=== PATIENT | male | born 1940 | race Caucasian/White ===

== ENCOUNTER 2016-08-25 21:16 | Emergency (ER) | payer MEDICARE ==
[~2016-08-25] VITALS: Ht 177.8 cm; Wt 90.7 kg
--- NOTE | 2016-08-25 21:36 | ED.ADGEN ---
Adult General Chief Complaint Chief Complaint: LOWEREXTREMITY INJURY [facility] HPI Patient is a 75 year old male presents with persistent left lower anterior leg pain tenderness and swelling after being struck in the left leg via softball one week ago. Patient is not currently on a blood thinner. Patient reports pain with palpation and ambulation, which is gradually worsened over the past week. Patient has not sought medical care orders like until today. He is not currently on anticoagulation therapy. On exam, patient has and approx 10 x 12 cm and area of left lower extremity, medial anterior tenderness swelling with bruising or palpable hematoma. There is no erythema. There is no pass anterior calf pain tenderness. Patient has 2+ distal pulses, with good cap refill and without neurologic deficit. Patient does not have increased pain on passive range of motion. No other acute symptoms or complaints. Review of Systems Review of Systems ROS as per [facility] Allergies Allergies Allergies Coded Allergies Type Severity Reaction Last Updated Verified No Known Drug Allergies 08/25/16 No Physical Exam Physical Exam Constitutional: Well developed, well nourished, no acute distress, non-toxic appearance. Extremities: No tenderness, Left lower extremity, approx 10 x 12 cm and area of the medial anterior tenderness swelling with bruising or palpable hematoma. There is no erythema. There is no pass anterior calf pain tenderness. Patient has 2+ distal pulses, with good cap refill and without neurologic deficit Neurologic: Alert and oriented X 3, normal motor function, normal sensory function, no focal deficits noted. Psychologic: Affect normal, judgement normal, mood normal. Current Patient Data Vital Signs Vital Signs Date Time Temp Pulse Resp B/P (MAP) Pulse Ox O2 Delivery O2 Flow Rate FiO2 08/25/16 21:22 97.8 91 16 143/80 (101) 95 Room Air 97.8 EKG EKG [] Radiology/Procedures Radiology/Procedures [] Course & Med Decision Making Course & Med Decision Making Pertinent Labs and Imaging studies reviewed. (See chart for details) [] Dragon Disclaimer Dragon Disclaimer This electronic medical record was generated, in whole or in part, using a voice recognition dictation system. VINCENZO OCONNOR DO Aug 25, 2016 21:36
--- NOTE | 2016-08-25 22:38 | RAD ---
Left Lower Extremity Venous Doppler Ultrasound Indication: Hit by softball in left medial calf one week ago, pain, swelling, bruising. Comparison: None. Procedure: Color Doppler, spectral Doppler, and grayscale images with and without compression are obtained in the area of the common femoral vein, superficial femoral vein - femoral vein junction, main femoral vein (superficial femoral vein) and popliteal vein. Veins of the proximal calf are also imaged. Findings: There is normal duplex flow, color flow and compressibility of all visualized vein segments. There is no evidence of deep venous thrombosis. Grayscale imaging demonstrates large subcutaneous hematoma involving the left lower leg in area of interest. Hematoma measures 7.1 x 5.2 x 1.9 cm. Impression: 1. No evidence of left lower extremity deep venous thrombosis. 2. Large left lower leg subcutaneous hematoma Electronically signed by: Gabriel Spears MD (08/25/2016 10:35 PM)
[2016-08-25 22:45] VITALS: BP 122/68
--- NOTE | 2016-08-26 09:01 | RAD ---
Left tibia and fibula, 2 views, 08/25/2016: History: Mid shaft pain and swelling No fracture is identified. There is considerable degenerative change at the knee joint with chondrocalcinosis. There is moderate diffuse subcutaneous edema about the lower leg. IMPRESSION: No acute bony abnormality is detected.
== END 2016-08-25 23:03 | disposition home or self-care (01) ==
LOC: ER 21:16
DX: M79.662 Pain in left lower leg (principal); R22.42 Localized swelling, mass and lump, left lower limb
CPT/HCPCS: 73590; 93971; 99284-25

== ENCOUNTER 2019-04-02 18:35 | Inpatient (IN) | payer MEDICARE ==
[~2019-04-02] VITALS: Ht 177.8 cm; Wt 91.6 kg
--- NOTE | 2019-04-02 18:58 | PHYS DOC ---
Past Medical History Past Medical History: Hypertension, Other Additional Past Medical Histor: Hx of Cirrhosis w/liver transplant Past Surgical History: Other Additional Past Surgical Histo: Liver transplant, left knee Smoking Status: Never Smoker Alcohol Use: Rarely Drug Use: None Adult General Chief Complaint Chief Complaint: KNEE INJURY [facility] HPI 78-year-old male with underlying history of hypertension, liver transplant presents to the emergency department with complaint of right knee pain. Patient states he was walking across the yard subsequent stepped in a pothole with his left foot, this process he twisted his right knee was unable to bear weight on his right knee. He describes pain with range of motion. Patient denies any chest pain, shortness breath, nausea, vomiting, abdominal pain. Review of Systems Review of Systems Constitutional: Denies fever or chills [] Respiratory: Denies cough or shortness of breath [] Cardiovascular: No additional information not addressed in HPI [] GI: Denies abdominal pain, nausea, vomiting, bloody stools or diarrhea [] : Denies dysuria or hematuria [] Musculoskeletal: right knee pain Integument: Denies rash or skin lesions [] Neurologic: Denies headache, focal weakness or sensory changes [] All other systems were reviewed and found to be within normal limits, except as documented in this note. Allergies Allergies Allergies Coded Allergies Type Severity Reaction Last Updated Verified No Known Drug Allergies 08/25/16 No Physical Exam Physical Exam Constitutional: Well developed, well nourished, no acute distress, non-toxic appearance. [] HENT: Normocephalic, atraumatic, bilateral external ears normal, oropharynx moist, no oral exudates, nose normal. [] Eyes: PERRLA, EOMI, conjunctiva normal, no discharge. [] Cardiovascular:Heart rate regular rhythm, no murmur [] Lungs & Thorax: Bilateral breath sounds clear to auscultation [] Abdomen: Bowel sounds normal, soft, no tenderness, no masses, no pulsatile masses. [] Skin: Warm, dry, no erythema, no rash. [] Back: No tenderness, no CVA tenderness. [] Extremities: TTP right knee, obvious effusion appreciated on exam, pain with ROM, negative anterior drawer test, no laxity appreciated to medial/lateral collateral ligament on exam Neurologic: Alert and oriented X 3, no focal deficits noted. [] Psychologic: Affect normal, judgement normal, mood normal. [] Current Patient Data Vital Signs Vital Signs Date Time Temp Pulse Resp B/P (MAP) Pulse Ox O2 Delivery O2 Flow Rate FiO2 04/02/19 18:38 98.7 90 16 170/81 (110) 97 Room Air 98.7 EKG EKG [] Radiology/Procedures Radiology/Procedures [facility] [address] [place] [address] IMAGING REPORT Signed PATIENT: ANDREW GARVEY EACCOUNT: [id number] : 1940 LOCATION: ER AGE: 78 SEX: M EXAM STATUS: REG ER ORD. PHYSICIAN: DAVID KATE MD REASON: fall, twisted knee - unable to bear weight, obvious traumatic effusion PROCEDURE: KNEE RIGHT 3V EXAM: AP, oblique and lateral views right knee DATE: 04/02/2019 6:54 PM INDICATION: Fall,Knee pain COMPARISON: No Prior FINDINGS/ IMPRESSION: 1. There is a mildly depressed lateral tibial plateau fracture with equivocal extension to the lateral tibial metaphysis. Fracture can be further delineated by CT. 2. Lipohemarthrosis. 3. Right knee joint osteoarthritis with moderate medial compartment joint space narrowing and tricompartmental osteophytes. Electronically signed by: Derek Baker MD (04/02/2019 7:44 PM) [id number] DICTATED and SIGNED BY: DEREK BAKER MD DATE: 04/02/19 194 [] Course & Med Decision Making Course & Med Decision Making Pertinent Labs and Imaging studies reviewed. (See chart for details) []78-year-old male with underlying history of hypertension, liver transplant presents to the emergency department with complaint of right knee pain. Patient states he was walking across the yard subsequent stepped in a pothole with his left foot, this process he twisted his right knee was unable to bear weight on his right knee. He describes pain with range of motion. Patient denies any chest pain, shortness breath, nausea, vomiting, abdominal pain. Xray with evidence of tibial plateau fracture Ortho called 2002 - discussed with Dr. Marx will see patient, recommends hinged knee brace Given patient lives alone no family to watch and pain control will admit with PT/OT consult Aden Disclaimer Aden Disclaimer This electronic medical record was generated, in whole or in part, using a voice recognition dictation system. Departure Departure Impression: Primary Impression: Tibial plateau fracture, right Disposition: 09 ADMITTED INPATIENT Admitting Physician: ANNIA Condition: STABLE Referrals: NO PCP (PCP) Problem Qualifiers Primary Impression: Tibial plateau fracture, right Encounter type: initial encounter Fracture type: closed Qualified Codes: S82.141A - Displaced bicondylar fracture of right tibia, initial encounter for closed fracture DAVID KATE MD Apr 02, 2019 18:58
--- NOTE | 2019-04-02 19:47 | RAD ---
EXAM: AP, oblique and lateral views right knee DATE: 04/02/2019 6:54 PM INDICATION: Fall,Knee pain COMPARISON: No Prior FINDINGS/ IMPRESSION: 1. There is a mildly depressed lateral tibial plateau fracture with equivocal extension to the lateral tibial metaphysis. Fracture can be further delineated by CT. 2. Lipohemarthrosis. 3. Right knee joint osteoarthritis with moderate medial compartment joint space narrowing and tricompartmental osteophytes. Electronically signed by: Derek Mccarthy MD (04/02/2019 7:44 PM) [id number]
[2019-04-02] MEDS ORDERED: ONDANSETRON PF 4 MG/2 ML VIAL. IV PRN ×2 (20:30→22:30)
[2019-04-02] MEDS ORDERED: TACR1CAP4 PO (22:19)
[2019-04-02] MEDS ORDERED: AMLO5TAB10 PO (22:21)
[2019-04-02] MEDS ORDERED: ATOR10TA60 PO (22:23)
[2019-04-02] MEDS ORDERED: ACETAMINOPHEN 325 MG TABLET. PO PRN (22:30)
[2019-04-02] MEDS ORDERED: DOCUSATE SODIUM 100 MG CAPSULE. PO PRN (22:30)
[2019-04-02] MEDS ORDERED: ZOLPIDEM 5 MG TABLET. PO PRN (22:30)
[2019-04-02] MEDS ORDERED: ALBUTEROL SULFATE 2.5 MG/3 ML NEBU. NEB PRN (22:30)
[2019-04-02] MEDS ORDERED: guaiFENesin ORAL 200 MG/10 ML LIQUID. PO PRN (22:30)
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
[2019-04-02] MEDS: MORPHINE SULFATE 2 MG/ML VIAL. IV PRN (22:50)
[2019-04-02] MEDS: ATORVASTATIN CALCIUM 10 MG TABLET. PO SCH (22:52)
[2019-04-02] MEDS: TACROLIMUS 0.5 MG CAPSULE PO SCH (22:54)
[2019-04-02 23:00] VITALS: BP 158/82
--- NOTE | 2019-04-02 23:35 | NUR ---
2200 pt arrived to room 438 from ED with ED staff, admission care done, Plan of care new orders reviewed with patient, pt understands POC ,pain managed.
[2019-04-03] MEDS: LORazepam 0.5 MG TABLET PO PRN ×2 (00:44→20:20)
[2019-04-03] MEDS ORDERED: MULT-245 PO (01:59)
[2019-04-03] MEDS ORDERED: OMEG1CAP50 PO (01:59)
[2019-04-03] MEDS ORDERED: CALC-31 PO (02:02)
[2019-04-03 03:00] VITALS: BP 123/74
[2019-04-03] MEDS: MORPHINE SULFATE 2 MG/ML VIAL. IV PRN ×4 (05:07→12:47)
[2019-04-03 06:05] LABS: ALBUMIN 3.4 g/dL (3.4-5.0); ALBUMIN/GLOBULIN RATIO 1.1 (1.0-1.7); CALCIUM 8.7 mg/dL (8.5-10.1); CREATININE 1.2 mg/dL (0.7-1.3); GFR 58.7; POTASSIUM 4.4 mmol/L (3.5-5.1); TOTAL BILIRUBIN 0.3 mg/dL (0.2-1.0); TOTAL PROTEIN 6.4 g/dL (6.4-8.2)
[2019-04-03 06:06] LABS: BASO % 0 % (0-3); EOS % 0 % (0-3); HEMATOCRIT 36.9 % (39.0-53.0); HEMOGLOBIN 12.6 g/dL (13.0-17.5); LYMPH # 0.9 x10^3/uL (1.0-4.8); LYMPH % 12 % (24-48); MEAN CORPUSCULAR HEMOGLOBIN 32 pg (25-35); MEAN CORPUSCULAR HGB CONC 34 g/dL (31-37); MEAN CORPUSCULAR VOLUME 95 fL (79-100); MONO # 0.5 x10^3/uL (0.0-1.1); MONO % 7 % (0-9); NEUT # 6.1 x10^3/uL (1.8-7.7); NEUT % 81 % (31-73); PLATELET COUNT 186 x10^3/uL (140-400); RED BLOOD COUNT 3.88 x10^6/uL (4.30-5.70); RED CELL DISTRIBUTION WIDTH 12.5 % (11.5-14.5); WHITE BLOOD COUNT 7.6 x10^3/uL (4.0-11.0)
[2019-04-03 07:00] VITALS: BP 105/60
[2019-04-03] MEDS: amLODIPine BESYLATE 5 MG TABLET PO SCH (09:05)
[2019-04-03] MEDS: TACROLIMUS 0.5 MG CAPSULE PO SCH ×2 (09:05→20:20)
[2019-04-03 11:00] VITALS: BP 141/71
--- NOTE | 2019-04-03 11:07 | PDOC ---
PROGRESS NOTES Chief Complaint Chief Complaint ASSESSMENT Right patellar fracture Impaired mobility due to the above Essential hypertension Liver transplant on chronic immunosupression PLAN orthopedic evaL PENDING pain control with morphine continue home meds PT consult when surgical plans addressed DVT prophylaxis: SCD Vitals Vitals Vital Signs Date Time Temp Pulse Resp B/P (MAP) Pulse Ox O2 Delivery O2 Flow Rate FiO2 04/03/19 09:51 Room Air 04/03/19 09:05 60 105/60 04/03/19 07:06 20 94 04/03/19 07:00 97.7 97.7 Physical Exam General: Alert, Oriented X3 Heart: Regular rate, Normal S1, Normal S2, No murmurs, Gallops Lungs: Clear Abdomen: Normal bowel sounds Extremities: No clubbing Skin: No rashes, No breakdown, No significant lesion Labs LABS Laboratory Tests Test 04/03/19 05:00 White Blood Count 7.6 x10^3/uL (4.0-11.0) Red Blood Count 3.88 x10^6/uL (4.30-5.70) Hemoglobin 12.6 g/dL (13.0-17.5) Hematocrit 36.9 % (39.0-53.0) Mean Corpuscular Volume 95 fL (79-100) Mean Corpuscular Hemoglobin 32 pg (25-35) Mean Corpuscular Hemoglobin Concent 34 g/dL (31-37) Red Cell Distribution Width 12.5 % (11.5-14.5) Platelet Count 186 x10^3/uL (140-400) Neutrophils (%) (Auto) 81 % (31-73) Lymphocytes (%) (Auto) 12 % (24-48) Monocytes (%) (Auto) 7 % (0-9) Eosinophils (%) (Auto) 0 % (0-3) Basophils (%) (Auto) 0 % (0-3) Neutrophils # (Auto) 6.1 x10^3/uL (1.8-7.7) Lymphocytes # (Auto) 0.9 x10^3/uL (1.0-4.8) Monocytes # (Auto) 0.5 x10^3/uL (0.0-1.1) Eosinophils # (Auto) 0.0 x10^3/uL (0.0-0.7) Basophils # (Auto) 0.0 x10^3/uL (0.0-0.2) Sodium Level 143 mmol/L (136-145) Potassium Level 4.4 mmol/L (3.5-5.1) Chloride Level 106 mmol/L (98-107) Carbon Dioxide Level 28 mmol/L (21-32) Anion Gap 9 (6-14) Blood Urea Nitrogen 24 mg/dL (8-26) Creatinine 1.2 mg/dL (0.7-1.3) Estimated GFR (Cockcroft-Gault) 58.7 BUN/Creatinine Ratio 20 (6-20) Glucose Level 136 mg/dL (70-99) Calcium Level 8.7 mg/dL (8.5-10.1) Total Bilirubin 0.3 mg/dL (0.2-1.0) Aspartate Amino Transf (AST/SGOT) 16 U/L (15-37) Alanine Aminotransferase (ALT/SGPT) 19 U/L (16-63) Alkaline Phosphatase 47 U/L (46-116) Total Protein 6.4 g/dL (6.4-8.2) Albumin 3.4 g/dL (3.4-5.0) Albumin/Globulin Ratio 1.1 (1.0-1.7) Assessment and Plan Assessmemt and Plan Problems Medical Problems: (1) Tibial plateau fracture, right Status: Acute Comment Review of Relevant I have reviewed the following items angle (where applicable) has been applied. Labs Laboratory Tests Test 04/03/19 05:00 White Blood Count 7.6 x10^3/uL (4.0-11.0) Red Blood Count 3.88 x10^6/uL (4.30-5.70) Hemoglobin 12.6 g/dL (13.0-17.5) Hematocrit 36.9 % (39.0-53.0) Mean Corpuscular Volume 95 fL (79-100) Mean Corpuscular Hemoglobin 32 pg (25-35) Mean Corpuscular Hemoglobin Concent 34 g/dL (31-37) Red Cell Distribution Width 12.5 % (11.5-14.5) Platelet Count 186 x10^3/uL (140-400) Neutrophils (%) (Auto) 81 % (31-73) Lymphocytes (%) (Auto) 12 % (24-48) Monocytes (%) (Auto) 7 % (0-9) Eosinophils (%) (Auto) 0 % (0-3) Basophils (%) (Auto) 0 % (0-3) Neutrophils # (Auto) 6.1 x10^3/uL (1.8-7.7) Lymphocytes # (Auto) 0.9 x10^3/uL (1.0-4.8) Monocytes # (Auto) 0.5 x10^3/uL (0.0-1.1) Eosinophils # (Auto) 0.0 x10^3/uL (0.0-0.7) Basophils # (Auto) 0.0 x10^3/uL (0.0-0.2) Sodium Level 143 mmol/L (136-145) Potassium Level 4.4 mmol/L (3.5-5.1) Chloride Level 106 mmol/L (98-107) Carbon Dioxide Level 28 mmol/L (21-32) Anion Gap 9 (6-14) Blood Urea Nitrogen 24 mg/dL (8-26) Creatinine 1.2 mg/dL (0.7-1.3) Estimated GFR (Cockcroft-Gault) 58.7 BUN/Creatinine Ratio 20 (6-20) Glucose Level 136 mg/dL (70-99) Calcium Level 8.7 mg/dL (8.5-10.1) Total Bilirubin 0.3 mg/dL (0.2-1.0) Aspartate Amino Transf (AST/SGOT) 16 U/L (15-37) Alanine Aminotransferase (ALT/SGPT) 19 U/L (16-63) Alkaline Phosphatase 47 U/L (46-116) Total Protein 6.4 g/dL (6.4-8.2) Albumin 3.4 g/dL (3.4-5.0) Albumin/Globulin Ratio 1.1 (1.0-1.7) Laboratory Tests Test 04/03/19 05:00 White Blood Count 7.6 x10^3/uL (4.0-11.0) Red Blood Count 3.88 x10^6/uL (4.30-5.70) Hemoglobin 12.6 g/dL (13.0-17.5) Hematocrit 36.9 % (39.0-53.0) Mean Corpuscular Volume 95 fL (79-100) Mean Corpuscular Hemoglobin 32 pg (25-35) Mean Corpuscular Hemoglobin Concent 34 g/dL (31-37) Red Cell Distribution Width 12.5 % (11.5-14.5) Platelet Count 186 x10^3/uL (140-400) Neutrophils (%) (Auto) 81 % (31-73) Lymphocytes (%) (Auto) 12 % (24-48) Monocytes (%) (Auto) 7 % (0-9) Eosinophils (%) (Auto) 0 % (0-3) Basophils (%) (Auto) 0 % (0-3) Neutrophils # (Auto) 6.1 x10^3/uL (1.8-7.7) Lymphocytes # (Auto) 0.9 x10^3/uL (1.0-4.8) Monocytes # (Auto) 0.5 x10^3/uL (0.0-1.1) Eosinophils # (Auto) 0.0 x10^3/uL (0.0-0.7) Basophils # (Auto) 0.0 x10^3/uL (0.0-0.2) Sodium Level 143 mmol/L (136-145) Potassium Level 4.4 mmol/L (3.5-5.1) Chloride Level 106 mmol/L (98-107) Carbon Dioxide Level 28 mmol/L (21-32) Anion Gap 9 (6-14) Blood Urea Nitrogen 24 mg/dL (8-26) Creatinine 1.2 mg/dL (0.7-1.3) Estimated GFR (Cockcroft-Gault) 58.7 BUN/Creatinine Ratio 20 (6-20) Glucose Level 136 mg/dL (70-99) Calcium Level 8.7 mg/dL (8.5-10.1) Total Bilirubin 0.3 mg/dL (0.2-1.0) Aspartate Amino Transf (AST/SGOT) 16 U/L (15-37) Alanine Aminotransferase (ALT/SGPT) 19 U/L (16-63) Alkaline Phosphatase 47 U/L (46-116) Total Protein 6.4 g/dL (6.4-8.2) Albumin 3.4 g/dL (3.4-5.0) Albumin/Globulin Ratio 1.1 (1.0-1.7) Medications Current Medications Ondansetron HCl (Zofran) 4 mg PRN Q8HRS PRN IV NAUSEA/VOMITING; Start 04/02/19 at 20:30; Stop 04/03/19 at 20:29 Ondansetron HCl (Zofran) 4 mg PRN Q4HRS PRN IV NAUSEA/VOMITING; Start 04/02/19 at 22:30 Zolpidem Tartrate (Ambien) 5 mg PRN QHS PRN PO INSOMNIA; Start 04/02/19 at 22:30 Acetaminophen (Tylenol) 650 mg PRN Q4HRS PRN PO TEMP OVER 100.4F OR MILD PAIN; Start 04/02/19 at 22:30 Docusate Sodium (Colace) 100 mg PRN BID PRN PO CONSTIPATION; Start 04/02/19 at 22:30 Albuterol Sulfate (Ventolin Neb Soln) 2.5 mg PRN Q4HRS PRN NEB SHORTNESS OF BREATH; Start 04/02/19 at 22:30 Guaifenesin (Robitussin) 200 mg PRN Q4HRS PRN PO COUGH; Start 04/02/19 at 22:30 Lorazepam (Ativan) 0.5 mg PRN Q4HRS PRN PO ANXIETY / AGITATION Last administered on 04/03/19at 00:44; Start 04/02/19 at 22:30 Tacrolimus (Prograf) 1 mg BID PO Last administered on 04/03/19at 09:05; Start 04/02/19 at 22:30 Amlodipine Besylate (Norvasc) 5 mg DAILY PO Last administered on 04/03/19at 09:05; Start 04/03/19 at 09:00 Morphine Sulfate (Morphine Sulfate) 2 mg PRN Q2HR PRN IV PAIN Last administered on 04/03/19at 09:05; Start 04/02/19 at 22:30 Atorvastatin Calcium (Lipitor) 10 mg HS PO Last administered on 04/02/19at 22:52; Start 04/02/19 at 22:30 Active Scripts Active Reported Calcium 500 + D Tablet (Calcium Carbonate/Vitamin D3) 1 Each Tablet 1 Tab PO BID 30 Days Multi Vitamin Daily (Multivitamin) 1 Each Tablet 1 Tab PO DAILY 30 Days Fish Oil 1,000 Mg Softgel ([place]-3 Fatty Acids/Fish Oil) 1 Each Capsule 1 Cap PO DAILY 30 Days Atorvastatin Calcium 10 Mg Tablet 1 Mg PO HS Amlodipine Besylate 5 Mg Tablet 1 Mg PO DAILY Prograf (Tacrolimus) 1 Mg Capsule 1 Mg PO BID Vitals/I & O Vital Sign - Last 24 Hours 04/02/19 04/02/19 04/02/19 04/02/19 18:38 18:53 19:41 22:50 Temp 98.7 98.7 Pulse 90 84 78 Resp 16 16 16 20 B/P (MAP) 170/81 (110) 146/79 (101) 152/80 (104) Pulse Ox 97 95 94 94 O2 Delivery Room Air Room Air Room Air Room Air 04/02/19 04/02/19 04/02/19 04/03/19 23:00 23:00 23:20 03:00 Temp 98.1 98.1 98.1 98.1 Pulse 88 73 Resp 18 20 18 B/P (MAP) 158/82 (107) 123/74 (90) Pulse Ox 95 94 94 O2 Delivery Room Air Room Air Room Air Room Air 04/03/19 04/03/19 04/03/19 04/03/19 05:07 05:37 07:00 07:06 Temp 97.7 97.7 Pulse 60 Resp 20 20 18 20 B/P (MAP) 105/60 (75) Pulse Ox 94 94 93 94 O2 Delivery Room Air Room Air Room Air Room Air 04/03/19 04/03/19 04/03/19 04/03/19 07:30 07:59 09:05 09:05 Pulse 60 B/P (MAP) 105/60 O2 Delivery Room Air Room Air Room Air 04/03/19 09:51 O2 Delivery Room Air Intake and Output 04/02/19 04/02/19 04/03/19 15:00 23:00 07:00 Intake Total 200 ml Balance 200 ml RADHA SUMNER MD Apr 03, 2019 11:06
[2019-04-03] MEDS: HYDROcodone/APAP 10/325 1 TAB TABLET PO PRN ×2 (11:22→20:24)
[2019-04-03 15:00] VITALS: BP 146/77
--- NOTE | 2019-04-03 15:26 | NUR ---
SW following. Discussed with RN. Pt is from home alone. Awaiting surgical consutl. PT/OT ordered for after consult. SW will continue to follow.
[2019-04-03 19:00] VITALS: BP 147/79
[2019-04-03] MEDS: ATORVASTATIN CALCIUM 10 MG TABLET. PO SCH (20:20)
[2019-04-03 23:00] VITALS: BP 143/71
[2019-04-04] MEDS: HYDROcodone/APAP 10/325 1 TAB TABLET PO PRN ×3 (02:38→16:29)
[2019-04-04 03:00] VITALS: BP 143/65
[2019-04-04 07:00] VITALS: BP_SYST 134; BP_SYST 142; BP_DIAS 62; BP_DIAS 68
[2019-04-04] MEDS: amLODIPine BESYLATE 5 MG TABLET PO SCH (09:07)
[2019-04-04] MEDS: TACROLIMUS 0.5 MG CAPSULE PO SCH (09:08)
[2019-04-04 11:00] VITALS: BP 127/60
--- NOTE | 2019-04-04 11:22 | CONS ---
DATE OF CONSULTATION: 04/04/2019 ORTHOPEDIC CONSULTATION REQUESTING PHYSICIAN: Simon Montano MD from the Emergency Department and subsequently Qamar Kingsley MD REASON FOR CONSULTATION: Right knee pain. 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 He said the first one worked satisfactorily, the next one just for a few weeks and the following one for a few days, so his left knee is usually his bad one. However, he was walking across the yard and stepped in a hole with his left foot, twisting his right knee and was subsequently unable to bear weight on his right knee and it hurts with motion as well. He denies any other injury. He presented to the Emergency Department and underwent admission for that. Based on my initial evaluation of the x-rays, I anticipated nonoperative treatment, directed him to be put in a hinged postoperative knee brace and undergo some physical therapy, nonweightbearing with gentle range of motion as tolerated. At this point, he states that the knee is still painful and swollen. He has been not weightbearing. He indicates a difficult time getting around and can only really ambulate a few feet across the room before he gets very tired and without assistance. PAST MEDICAL HISTORY: Significant for history of liver cirrhosis and he underwent transplantation. He also has hypertension. PAST SURGICAL HISTORY: Liver transplant and left knee. ALLERGIES: He has no known drug allergies. MEDICATIONS: List is reviewed. FAMILY HISTORY: Noncontributory. SOCIAL HISTORY: Denies smoking or drug use. Rare consumption of alcohol, was independently ambulatory prior to this incident. REVIEW OF SYSTEMS: Significant for some ongoing pain, arthritis related in the left knee and he has really been unable to undergo desired knee replacement on the left because of his liver transplant and his increased risks. He has obviously the sudden onset of right knee pain and swelling post-injury. Denies any loss of consciousness, head injury, visual changes, neck or back pain, radiating pain, focal weakness, numbness or tingling, just some generalized difficulty with ambulation as described above. PHYSICAL EXAMINATION: GENERAL: A pleasant, cooperative 78-year-old male, alert and oriented, in no acute distress, examined at bedside today. EXTREMITIES: Examination of the right knee reveals moderate effusion. He has diffuse tenderness around the knee, particularly over the tibia. No gross instability. He has minimal distal swelling. Compartments are soft. He has some crepitus and joint line tenderness on the contralateral left knee, but good ligament stability and patellofemoral tracking. Normal alignment with stability, bilateral hips and ankles with overall intact motor function, distal pulses, sensation in skin and both lower extremities throughout. Reflexes not tested on the right due to his knee discomfort, intact on the left, however. IMAGING: X-rays of the right knee show a lateral tibial plateau fracture overall and reasonable alignment, only slight depression. He does have tricompartmental degenerative changes. IMPRESSION: 1. Right tibial plateau fracture, status post fall. 2. History of left knee degenerative symptoms, poorly responsive to corticosteroid in the past. TREATMENT PLAN: I went over with him the rationale that his fracture is acceptably aligned in the right knee and nothing to be gained from any surgical treatment or stabilization. I did go over with him, however, the need for the brace to stabilize him and allow gentle protected range of motion of the nonweightbearing to avoid displacing the fracture and the expected course of healing could be a 6-8 week endeavor roughly healing would be slowed down by his liver transplant, but even with any operative indication that would not speed up healing, only somewhat stabilize the fracture, but would really not change his weightbearing restrictions at this time. All his questions were answered regarding the nonoperative treatment and necessity the brace and physical limitations. I can continue him on physical therapy to try and facilitate safe mobilization and transfers. He had discussed the possibility of a rehabilitation stay that he was told that he might need that. I told him that it depends on how safely he is getting around with the help that he has at home and finally that since he got poor relief and ongoing symptoms of the left knee that viscosupplementation could be considered in the future that would have to be done on an outpatient basis and I suggested that perhaps we either have his image scientist do that if he desires or that where he follows at [facility] or I would be happy to address this when I see him back in the office at a planned 2-week followup for x-rays of his right knee. He appreciated the discussion and followup and treatment plan as above. DAR J. APOLINAR, MD DR: CARMITA/jerri JOB#: [id number] / [id number]
--- NOTE | 2019-04-04 13:50 | PDOC ---
PROGRESS NOTES Chief Complaint Chief Complaint ASSESSMENT Right patellar fracture Impaired mobility due to the above Essential hypertension Liver transplant on chronic immunosupression PLAN orthopedic evaL non-operative pain control with IV morphine prn and PO hydrocodone prn. wean off morphine cristian continue home meds PT consulted DVT prophylaxis: heparin sq full code needs placement. sw consulted Vitals Vitals Vital Signs Date Time Temp Pulse Resp B/P (MAP) Pulse Ox O2 Delivery O2 Flow Rate FiO2 04/04/19 11:43 90 Room Air 04/04/19 11:00 98.1 74 16 127/60 (82) 98.1 Physical Exam General: Alert, Oriented X3 Heart: Regular rate, Normal S1, Normal S2, No murmurs, Gallops Lungs: Clear Abdomen: Normal bowel sounds Extremities: No clubbing Skin: No rashes, No breakdown, No significant lesion Assessment and Plan Assessmemt and Plan Problems Medical Problems: (1) Tibial plateau fracture, right Status: Acute Comment Review of Relevant I have reviewed the following items angle (where applicable) has been applied. Labs Laboratory Tests Test 04/03/19 05:00 White Blood Count 7.6 x10^3/uL (4.0-11.0) Red Blood Count 3.88 x10^6/uL (4.30-5.70) Hemoglobin 12.6 g/dL (13.0-17.5) Hematocrit 36.9 % (39.0-53.0) Mean Corpuscular Volume 95 fL (79-100) Mean Corpuscular Hemoglobin 32 pg (25-35) Mean Corpuscular Hemoglobin Concent 34 g/dL (31-37) Red Cell Distribution Width 12.5 % (11.5-14.5) Platelet Count 186 x10^3/uL (140-400) Neutrophils (%) (Auto) 81 % (31-73) Lymphocytes (%) (Auto) 12 % (24-48) Monocytes (%) (Auto) 7 % (0-9) Eosinophils (%) (Auto) 0 % (0-3) Basophils (%) (Auto) 0 % (0-3) Neutrophils # (Auto) 6.1 x10^3/uL (1.8-7.7) Lymphocytes # (Auto) 0.9 x10^3/uL (1.0-4.8) Monocytes # (Auto) 0.5 x10^3/uL (0.0-1.1) Eosinophils # (Auto) 0.0 x10^3/uL (0.0-0.7) Basophils # (Auto) 0.0 x10^3/uL (0.0-0.2) Sodium Level 143 mmol/L (136-145) Potassium Level 4.4 mmol/L (3.5-5.1) Chloride Level 106 mmol/L (98-107) Carbon Dioxide Level 28 mmol/L (21-32) Anion Gap 9 (6-14) Blood Urea Nitrogen 24 mg/dL (8-26) Creatinine 1.2 mg/dL (0.7-1.3) Estimated GFR (Cockcroft-Gault) 58.7 BUN/Creatinine Ratio 20 (6-20) Glucose Level 136 mg/dL (70-99) Calcium Level 8.7 mg/dL (8.5-10.1) Total Bilirubin 0.3 mg/dL (0.2-1.0) Aspartate Amino Transf (AST/SGOT) 16 U/L (15-37) Alanine Aminotransferase (ALT/SGPT) 19 U/L (16-63) Alkaline Phosphatase 47 U/L (46-116) Total Protein 6.4 g/dL (6.4-8.2) Albumin 3.4 g/dL (3.4-5.0) Albumin/Globulin Ratio 1.1 (1.0-1.7) Medications Current Medications Ondansetron HCl (Zofran) 4 mg PRN Q8HRS PRN IV NAUSEA/VOMITING; Start 04/02/19 at 20:30; Stop 04/03/19 at 20:29; Status DC Ondansetron HCl (Zofran) 4 mg PRN Q4HRS PRN IV NAUSEA/VOMITING; Start 04/02/19 at 22:30 Zolpidem Tartrate (Ambien) 5 mg PRN QHS PRN PO INSOMNIA; Start 04/02/19 at 22:30 Acetaminophen (Tylenol) 650 mg PRN Q4HRS PRN PO TEMP OVER 100.4F OR MILD PAIN; Start 04/02/19 at 22:30 Docusate Sodium (Colace) 100 mg PRN BID PRN PO CONSTIPATION; Start 04/02/19 at 22:30 Albuterol Sulfate (Ventolin Neb Soln) 2.5 mg PRN Q4HRS PRN NEB SHORTNESS OF BREATH; Start 04/02/19 at 22:30 Guaifenesin (Robitussin) 200 mg PRN Q4HRS PRN PO COUGH; Start 04/02/19 at 22:30 Lorazepam (Ativan) 0.5 mg PRN Q4HRS PRN PO ANXIETY / AGITATION Last administered on 04/03/19 20:20; Start 04/02/19 at 22:30 Tacrolimus (Prograf) 1 mg BID PO Last administered on 04/04/19at 09:08; Start 04/02/19 at 22:30 Amlodipine Besylate (Norvasc) 5 mg DAILY PO Last administered on 04/04/19 09:07; Start 04/03/19 at 09:00 Morphine Sulfate (Morphine Sulfate) 2 mg PRN Q2HR PRN IV PAIN Last administered on 04/03/19at 12:47; Start 04/02/19 at 22:30 Atorvastatin Calcium (Lipitor) 10 mg HS PO Last administered on 04/03/19at 20:20; Start 04/02/19 at 22:30 Acetaminophen/ Hydrocodone Bitart (Lortab 10/325) 1 tab PRN Q6HRS PRN PO PAIN Last administered on 04/04/19 09:10; Start 04/03/19 at 11:15 Active Scripts Active Reported Calcium 500 + D Tablet (Calcium Carbonate/Vitamin D3) 1 Each Tablet 1 Tab PO BID 30 Days Multi Vitamin Daily (Multivitamin) 1 Each Tablet 1 Tab PO DAILY 30 Days Fish Oil 1,000 Mg Softgel ([place]-3 Fatty Acids/Fish Oil) 1 Each Capsule 1 Cap PO DAILY 30 Days Atorvastatin Calcium 10 Mg Tablet 1 Mg PO HS Amlodipine Besylate 5 Mg Tablet 1 Mg PO DAILY Prograf (Tacrolimus) 1 Mg Capsule 1 Mg PO BID Vitals/I & O Vital Sign - Last 24 Hours 04/03/19 04/03/19 04/03/19 04/03/19 15:00 19:00 20:00 20:24 Temp 98.1 98.5 98.1 98.5 Pulse 80 83 Resp 16 18 20 B/P (MAP) 146/77 (100) 147/79 (101) Pulse Ox 91 91 O2 Delivery Room Air Room Air Room Air Room Air 204/03/19 04/04/19 04/04/19 21:24 23:00 02:38 03:00 Temp 99.0 98.4 99.0 98.4 Pulse 83 79 Resp 20 18 20 18 B/P (MAP) 143/71 (95) 143/65 (91) Pulse Ox 94 95 O2 Delivery Room Air Room Air Room Air Room Air 04/04/19 04/04/19 04/04/19 04/04/19 03:38 07:00 08:00 09:07 Temp 98.1 98.1 Pulse 85 85 Resp 20 16 B/P (MAP) 134/68 (90) 134/68 Pulse Ox 97 O2 Delivery Nasal Cannula Room Air Room Air 04/04/19 04/04/19 11:00 11:43 Temp 98.1 98.1 Pulse 74 Resp 16 B/P (MAP) 127/60 (82) Pulse Ox 90 90 O2 Delivery Room Air Room Air Intake and Output 04/03/19 04/03/19 04/04/19 15:00 23:00 07:00 Intake Total 0 ml Output Total 200 ml 1 ml Balance -200 ml -1 ml RADHA SUMNER MD Apr 04, 2019 13:50
[2019-04-04] MEDS ORDERED: HEPARIN for SUB-Q USE 5,000 UNIT/ML VIAL. SQ SCH (14:00)
[2019-04-04 15:00] VITALS: BP 142/67
--- NOTE | 2019-04-04 15:24 | NUR ---
SW following. Discussed with RN, Pt would like acute rehab in [place] as his son lives near there. [facility] is full as is [facility] acute [place]hab [place]. [place] [facility] has beds, referral has been faxed. Awaiting acceptance decision. They can take pt today if pt is accepted. SW will continue to follow. RN notified.
--- NOTE | 2019-04-04 17:26 | SNU/HH DC ---
DISCHARGE ORDERS DISCHARGE INFORMATION: DISCHARGE DATE: Apr 04, 2019 FINAL DIAGNOSIS Problems Medical Problems: (1) Tibial plateau fracture, right Status: Acute CONDITION ON DISCHARGE: Stable CODE STATUS: Code Status: Full SENIOR CARE: SNF STAY <30 DAYS: Yes POST DISCHARGE ORDERS: ACTIVITY ORDERS: Activity as tolerated WEIGHT BEARING STATUS: As tolerated DIET AFTER DISCHARGE: Cardiac TREATMENT/EQUIPMENT ORDERS: Physical Therapy For: Evalulation/Treatment Occupational Therapy For: Evaluation/Treatment DISCHARGE MEDICATIONS: Home Meds Reported Medications Calcium Carbonate/Vitamin D3 (CALCIUM 500 + D TABLET) 1 Each Tablet, 1 TAB PO BID for supplements for 30 Days, #60 TAB 0 Refills 04/03/19 [place]-3 Fatty Acids/Fish Oil (FISH OIL 1,000 MG SOFTGEL) 1 Each Capsule, 1 CAP PO DAILY for supplement for 30 Days, #30 CAP 0 Refills 04/03/19 Atorvastatin Calcium (ATORVASTATIN CALCIUM) 10 Mg Tablet, 1 MG PO HS for hld 04/02/19 Amlodipine Besylate (AMLODIPINE BESYLATE) 5 Mg Tablet, 1 MG PO DAILY for htn 04/02/19 Tacrolimus (PROGRAF) 1 Mg Capsule, 1 MG PO BID for liver transplant, CAP 04/02/19 Discontinued Reported Medications Multivitamin (MULTI VITAMIN DAILY) 1 Each Tablet, 1 TAB PO DAILY for supplements for 30 Days, #30 TAB 0 Refills 04/03/19 RADHA SUMNER MD Apr 04, 2019 17:26
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
--- NOTE | 2019-04-04 18:36 | NUR ---
REPORT CALLED TO BRIAN AT [facility]. TRANSPORTATION SCHEDULED TO [facility] PATIENT AT 1915. IV DISCONTINUED AND CATHETER INTACT.
--- NOTE | 2019-04-04 21:33 | NUR ---
Patient discharged from [facility] at 1930 hours. Paperwork and discharge instructions given to [facility] [employer]. Patient assisted to wheelchair for transport at this time.
== END 2019-04-04 19:30 | DRG 563 ==
LOC: ER 18:35 → 4 NORTH 20:15 → OBSVTOIN 20:33
PROVIDERS: ADMIT Internal Medicine; ATTEND Internal Medicine
DX: S82.144A Nondisplaced bicondylar fracture of right tibia, initial encounter for closed fracture (principal); Z94.4 Liver transplant status; I10 Essential (primary) hypertension; M17.11 Unilateral primary osteoarthritis, right knee; M25.761 Osteophyte, right knee; W18.42XA Slipping, tripping and stumbling without falling due to stepping into hole or opening, initial encounter; Z79.899 Other long term (current) drug therapy; Y93.89 Activity, other specified; Y92.89 Other specified places as the place of occurrence of the external cause; Y99.8 Other external cause status
CPT/HCPCS: 36415; 73562; 80053; 85025; 96374; G0379; J2270; J7507; 97110; 97530; 99285-25; G0378